=== PATIENT | female | born 1995 ===

== ENCOUNTER 2016-12-09 09:59 | Emergency (ER) | payer OTHER ==
--- NOTE | 2016-12-09 11:30 | UC ---
Abeba Bills [place], scribed for Doreen Caldera MD on 12/09/16 at 1127 . Cardiac HPI - HPI Summary HPI Summary: Patient is a 21 y/o female who presents to the reporting feeling like she is unable to take a deep, full breath. Pt states first noticed last night. PT denies feeling SOB. She reports intermittent cough productive for yellow/green sputum (not today, but usually 3-5 times day) for the past month and states that she has not been able to take a full, deep breath since yesterday night. She also reports fullness of sinuses, and nausea (but not aggravated with PO intake), but denies fever, chills, rashes, vomiting, throat pain, or vaginal discharge. This morning pt developed left sided CP when she was driving to - states felt scared somehting wrong with lungs. She states that her chest still aches, but pain is improved. She also states that CP is not worsened with deep breaths or with movement of the arms. PMHx significant for asthma, exercise induce. Pt reports she took Claritin because she was concerned it was allergies , with little relief. She also used an inhaler once yesterday, also, with little relief. She has not eaten today. Pt recently traveled to [facility] for 1 week through [place] and has been back for the past 2-3 weeks. No leg cramping. No BCP. She also reports that she had a similar cough last year that also lasted "a long time", but she received a Z-pack and an Inhaler with improvement. She denies any recent exposure to smoke, but reports using marijuana 2-3 weeks ago. She has no known allergies. Patients medication reviewed this visit. - History of Current Complaint Chief Complaint: UCChestPain Stated Complaint: BREATHING/CHEST COMPLAINT Time Seen by Provider: 12/09/16 10:14 Hx Obtained From: Patient Onset/Duration: Gradual Onset, Lasting Days, Still Present Timing: Constant Initial Severity: Moderate Current Severity: Moderate Chest Pain Location: Diffuse Character: Dull/Aching Aggravating: Nothing Alleviating: Nothing Associated Signs & Symptoms: Positive: Chest Pain, Anxiety, Cough - Allergy/Home Medications Allergies/Adverse Reactions: Allergies Allergy/AdvReac Type Severity Reaction Status Date / Time No Known Allergies Allergy Verified 12/09/16 10:15 Home Medications: Home Medications Loratadine & Pseudoephedrine [Claritin-D 12 Hour 5-120 mg] 12/09/16 [History] PMH/Surg Hx/FS Hx/Imm Hx Previously Healthy: Yes Respiratory History Of: Reports: Asthma - exercise induced asthma - Surgical History Surgical History: Yes Surgery Procedure, Year, and Place: ACL repair 2011 - Family History Known Family History: Negative: Cardiac Disease, Respiratory Disease - Social History Occupation: Student Alcohol Use: Daily - Everyother day. Alcohol Amount: wine 1-2 glasses everytime Substance Use Type: Marijuana Smoking Status (MU): Never Smoked Tobacco Review of Systems Constitutional: Negative Skin: Negative Eyes: Negative ENT: Other - Sinuses. Respiratory: Cough, Other - feeling can't take deep breath, not SOB Cardiovascular: Chest Pain Gastrointestinal: Other - Nausea. Genitourinary: Negative Motor: Negative Neurovascular: Negative Musculoskeletal: Negative Neurological: Negative Psychological: Anxious All Other Systems Reviewed And Are Negative: Yes Physical Exam Triage Information Reviewed: Yes Appearance: Well-Appearing - resting comfortable, scrolling on cellphone - no distress, No Pain Distress, Well-Nourished Vital Signs: Initial Vital Signs Pulse 70 12/09/16 10:16 Resp 18 12/09/16 10:16 BP 112/76 12/09/16 10:16 Pulse Ox 99 12/09/16 10:16 Eye Exam: Normal Eyes: Positive: Conjunctiva Clear ENT Exam: Normal ENT: Positive: Hearing grossly normal, Pharynx normal, TMs normal Dental Exam: Normal Neck exam: Normal Neck: Positive: Supple, Nontender, No Lymphadenopathy Respiratory Exam: Normal Respiratory: Positive: Chest non-tender, Normal breath sounds, No respiratory distress, No accessory muscle use - speaking full, easy sentences no increased WOB, no retractions, Other: - mild chest wall pain - minimal discomfot with direct palpation and ROM upper ext Cardiovascular Exam: Normal Cardiovascular: Positive: RRR, No Murmur, Other: Abdominal Exam: Normal Abdomen Description: Positive: Nontender, No Organomegaly, Soft Musculoskeletal Exam: Normal Neurological Exam: Normal Neurological: Positive: Alert, Muscle Tone Normal Psychological Exam: Normal Psychological: Positive: Normal Response To Family Skin Exam: Normal Diagnostics - Laboratory Diagnostic Studies Completed/Ordered: EKG: Sinus AV @ 80bpm. No acute changes. - Radiology CXR Radiology Interpretation Completed By: Radiologist - IMPRESSION: NO ACTIVE CARDIOPULMONARY DISEASE IS NOTED. Re-Evaluation - Re-Evaluation First Eval Re-Evaluation Time: 12:19 Comment: Updated and discussed CXR results. - Assessment/Plan Course Of Treatment: PT presents with sense can't take deep breath - no sob. Pt with 1 month h/o cough, yellow sputum. PT developed some discomfort left anterior while enroute to [place] - pain primarily resolved. pt states feels better since here. - Clinical Impression Provider Diagnoses: chest pain of unclear cause Discharge - Discharge Plan Condition: Stable Disposition: HOME Patient Education Materials: Dyspnea (ED), Chest Wall Pain (ED) Referrals: [facility] [Outside] No Primary Care Phys,NOPCP [Primary Care Provider] - Additional Instructions: - stay well hydrate. Drink plenty of non-alcoholic, non-caffinated beverages - Use your inhaler - 2 puffs every 4 hours today, then every 4 hours as needed - It is recommended you take claritin daily - Okay to alternate ibuprofen (advil, motrin) and tylenol every 3hours for pain - Avoid vigorous activity or exercise until you are feeling better - SChedule a follow-up appointment with [place] for the end of the week. Go to [place], return here, or go to the emergency department with any questions or concerns The documentation as recorded by the Abeba guthrie Salem accurately reflects the service I personally performed and the decisions made by me, Doreen Caldera MD.
--- NOTE | 2016-12-09 11:53 | RAD ---
Indication: Shortness of breath, cough. 2 views of the chest including dual energy PA views demonstrates no mediastinal shift. Heart is of normal size and configuration. Lung arrieta are clear. IMPRESSION: NO ACTIVE CARDIOPULMONARY DISEASE IS NOTED.
== END 2016-12-09 12:31 | disposition home or self-care (01) ==
LOC: UCEAST 09:59
DX: R07.9 Chest pain, unspecified (principal); J45.909 Unspecified asthma, uncomplicated
CPT/HCPCS: 71020; 93005; 99201; G0463